=== PATIENT | female | born 2005 | race Caucasian/White ===

== ENCOUNTER 2024-05-18 11:08 | Inpatient (IN) | payer OTHER ==
[~2024-05-18] VITALS: Ht 144.8 cm; Wt 65.9 kg
[2024-05-18 12:13] LABS: HEMATOCRIT 39.4 % (36.0-47.0); HEMOGLOBIN 13.3 g/dl (12.0-15.5); MEAN CORPUSCULAR HGB CONC 33.8 g/dl (32.0-36.5); MEAN CORPUSCULAR VOLUME 88.7 fl (80.0-96.0); PLATELET COUNT, AUTOMATED 327 10^3/uL (150-450); RED BLOOD COUNT 4.44 10^6/uL (4.00-5.40); WHITE BLOOD COUNT 9.7 10^3/uL (4.0-10.0)
[2024-05-18 12:23] LABS: AMPHETAMINES LEVEL URINE NEGATIVE (NEGATIVE); BARBITURATES URINE NEGATIVE (NEGATIVE); BENZODIAZEPINES URINE NEGATIVE (NEGATIVE); COCAINE METABOLITE URINE NEGATIVE (NEGATIVE)
[2024-05-18 12:24] LABS: CANNABINOIDS URINE NEGATIVE (NEGATIVE); METHADONE URINE NEGATIVE (NEGATIVE); OPIATES URINE NEGATIVE (NEGATIVE); PHENCYCLIDINE URINE NEGATIVE (NEGATIVE)
[2024-05-18 12:25] LABS: ETHYL ALCOHOL (ETHANOL) < 0.003 % (0.000-0.010)
[2024-05-18 12:27] LABS: ALBUMIN 4.2 G/DL (3.2-5.2); ALKALINE PHOSPHATASE 64 U/L (35-104); ALT/SGPT 48 U/L (7.0-40); AST/SGOT 27 U/L (<34); BILIRUBIN,DIRECT 0.2 MG/DL (<0.4); BILIRUBIN,TOTAL 0.7 MG/DL (0.3-1.2); BLOOD UREA NITROGEN 11 MG/DL (9-23); CALCIUM LEVEL 9.4 MG/DL (8.5-10.1); CARBON DIOXIDE LEVEL 28 MMOL/L (20-31); CHLORIDE LEVEL 107 MMOL/L (98-107); CREATININE FOR GFR 0.54 MG/DL (0.55-1.30); GLUCOSE, FASTING 89 MG/DL (60-100); POTASSIUM SERUM 4.4 MMOL/L (3.5-5.1); SALICYLATE LEVEL < 3.0 MG/DL (<30); SODIUM LEVEL 142 MMOL/L (136-145); TOTAL PROTEIN 7.4 G/DL (5.7-8.2)
[2024-05-18 12:29] LABS: THYROID STIMULATING HORMONE 1.055 uIU/ML (0.48-4.17)
[2024-05-18 12:42] LABS: HCG, SERUM QUALITATIVE NEGATIVE (NEGATIVE)
[2024-05-18] MEDS ORDERED: MELO7.5T35 PO (14:43)
[2024-05-18] MEDS ORDERED: HOME MED LIST COMPLETE! XX SCH (14:45)
[2024-05-18] MEDS ORDERED: IBUPROFEN 400MG TAB PO PRN (18:25)
[2024-05-18] MEDS ORDERED: ACETAMINOPHEN 325 MG TAB PO PRN (18:25)
[2024-05-18] MEDS ORDERED: MOM 30ML SUSPENSION UDC PO PRN (18:25)
[2024-05-18] MEDS ORDERED: MAALOX 30 ML SUSP *UDC PO PRN (18:25)
[2024-05-18 19:30] VITALS: BP 137/91; TEMP 97.9; O2SAT 100
[2024-05-18] MEDS: traZODone 50 MG TAB PO PRN (22:42)
[2024-05-18] MEDS: diphenhydrAMINE 25MG CAP PO PRN (22:42)
[2024-05-19 06:33] VITALS: BP 139/89; TEMP 97; O2SAT 100
[2024-05-19] MEDS: busPIRone 5 MG TAB PO SCH (10:32)
[2024-05-19] MEDS: LORazepam 0.5 MG TAB PO STA (10:33)
[2024-05-19 15:04] VITALS: BP 127/79; TEMP 98; O2SAT 99
[2024-05-19] MEDS: hydrOXYzine 50 MG TAB PO PRN (15:48)
[2024-05-19] MEDS: OLANZapine 5 MG TAB PO PRN (15:48)
[2024-05-19] MEDS: LURASIDONE 20 MG TAB (LATUDA) PO SCH (18:10)
[2024-05-20 06:27] VITALS: BP 135/83; TEMP 97.3; O2SAT 100
[2024-05-20] MEDS ORDERED: HYDR50TA70 PO (08:22)
[2024-05-20] MEDS ORDERED: BUSP5TA PO (08:22)
[2024-05-20] MEDS ORDERED: LATU20TA PO (08:22)
[2024-05-20] MEDS ORDERED: TRAZ-252 PO (08:22)
[2024-05-20 14:52] VITALS: BP 121/66; TEMP 98.4; O2SAT 100
[2024-05-21 06:38] VITALS: BP 128/76; TEMP 97.2; O2SAT 8
== END 2024-05-21 09:38 | disposition home or self-care (01) | DRG 885 ==
LOC: EDBD 11:08 → M ED 11:08 → M ED INP 14:20 → M PSY 16:14
PROVIDERS: ADMIT Psychiatry & Neurology Psychiatry; ATTEND Psychiatry & Neurology Psychiatry
DX: F31.9 Bipolar disorder, unspecified (principal); R45.851 Suicidal ideations; F41.9 Anxiety disorder, unspecified; F17.290 Nicotine dependence, other tobacco product, uncomplicated; I10 Essential (primary) hypertension; F10.10 Alcohol abuse, uncomplicated; F50.82 Avoidant/restrictive food intake disorder; Z91.51 Personal history of suicidal behavior; Z79.899 Other long term (current) drug therapy

== ENCOUNTER 2024-12-13 17:29 | Emergency (ER) | payer OTHER ==
[~2024-12-13] VITALS: Ht 144.8 cm; Wt 66.3 kg
[~2024-12-13 17:29] MED LIST: BUSP5TA PO; HYDR50TA70 PO; LATU20TA PO; MELO7.5T35 PO; TRAZ-252 PO
[2024-12-13 17:35] VITALS: BP 126/77; TEMP 97; O2SAT 100
[2024-12-13 19:00] LABS: KETONE, URINE AUTO RFX TRACE mg/dL (NEGATIVE); MUCUS, URINE RFX MODERATE (NEGATIVE); NITRITE, URINE AUTO RFX NEGATIVE (NEGATIVE); RBC, URINE AUTO RFX 53 /HPF (0-3); SQUAM EPITHELIAL CELL UR AURFX 2 /HPF (0-6); WBC, URINE AUTO RFX 10 /HPF (0-3)
[2024-12-13 19:01] LABS: LEUKOCYTE ESTERASE UR AUTO RFX TRACE (NEGATIVE)
[2024-12-13 19:32] LABS: Trichomonas vaginalis (AMP) NOT DETECTED (NEGATIVE)
[2024-12-13 19:55] LABS: GC DNA AMPLIFICATION NEGATIVE (NEGATIVE)
[2024-12-13 20:55] LABS: BASO # 0.1 10^3/uL (0.0-0.2); BASO % 0.7 % (0.0-1.0); EOS # 0.5 10^3/uL (0.0-0.5); EOS % 5.3 % (0.0-3.0); LYMPH # 3.3 10^3/uL (1.5-5.0); LYMPH % 37.0 % (24.0-44.0); MONO # 0.6 10^3/uL (0.0-0.8); MONO % 6.6 % (2.0-8.0); NEUTROPHILS # 4.5 10^3/uL (1.5-8.5); NEUTROPHILS % 50.2 % (36.0-66.0); PLATELET COUNT, AUTOMATED 290 10^3/uL (150-450)
[2024-12-13 21:17] LABS: HCG, SERUM QUANTITATIVE < 2.6 MIU/ML (<4.2)
[2024-12-13 21:19] LABS: CALCIUM LEVEL 9.3 MG/DL (8.5-10.1); CARBON DIOXIDE LEVEL 25 MMOL/L (20-31); CHLORIDE LEVEL 107 MMOL/L (98-107); CREATININE FOR GFR 0.75 MG/DL (0.55-1.30); GLOMERULAR FILTRATION RATE > 90.0 (>60); POTASSIUM SERUM 4.4 MMOL/L (3.5-5.1); SODIUM LEVEL 142 MMOL/L (136-145)
[2024-12-13 21:46] LABS: HIV 1&2 SCREEN NEGATIVE (NEGATIVE)
== END 2024-12-13 21:45 | disposition left against medical advice (07) ==
LOC: M ED 17:29
DX: Z53.21 Procedure and treatment not carried out due to patient leaving prior to being seen by health care provider (principal)

== ENCOUNTER 2024-12-15 09:24 | Emergency (ER) | payer OTHER ==
[~2024-12-15] VITALS: Ht 144.8 cm; Wt 54.3 kg
[2024-12-15 10:21] LABS: APPEARANCE, URINE HAZY (CLEAR); BACTERIA, URINE AUTO NEGATIVE (NEGATIVE); BILIRUBIN, URINE AUTO NEGATIVE (NEGATIVE); BLOOD, URINE BLOOD NEGATIVE (NEGATIVE); GLUCOSE, URINE (UA) AUTO NEGATIVE (NEGATIVE); KETONE, URINE AUTO TRACE mg/dL (NEGATIVE); LEUKOCYTE ESTERASE, URINE AUTO NEGATIVE (NEGATIVE); MUCUS, URINE LARGE (NEGATIVE); NITRITE, URINE AUTO NEGATIVE (NEGATIVE); PROTEIN, URINE AUTO 1+ mg/dL (NEGATIVE); RBC, URINE AUTO 0 /HPF (0-3); SPECIFIC GRAVITY URINE AUTO 1.029 (1.002-1.035); SQUAMOUS EPITHELIAL CELL UR AU 1 /HPF (0-6); UROBILINOGEN, URINE AUTO 2.0 mg/dL (0.0-2.0); WBC, URINE AUTO 7 /HPF (0-3)
[2024-12-15 10:24] LABS: BASO # 0.1 10^3/uL (0.0-0.2); BASO % 1.0 % (0.0-1.0); EOS # 0.4 10^3/uL (0.0-0.5); EOS % 7.1 % (0.0-3.0); LYMPH # 2.1 10^3/uL (1.5-5.0); LYMPH % 34.3 % (24.0-44.0); MONO # 0.5 10^3/uL (0.0-0.8); MONO % 7.4 % (2.0-8.0); NEUTROPHILS # 3.0 10^3/uL (1.5-8.5); NEUTROPHILS % 50.0 % (36.0-66.0); PLATELET COUNT, AUTOMATED 291 10^3/uL (150-450)
[2024-12-15 10:50] LABS: CALCIUM LEVEL 9.3 MG/DL (8.5-10.1); CARBON DIOXIDE LEVEL 28 MMOL/L (20-31); CHLORIDE LEVEL 106 MMOL/L (98-107); CREATININE FOR GFR 0.73 MG/DL (0.55-1.30); GLOMERULAR FILTRATION RATE > 90.0 (>60); POTASSIUM SERUM 4.0 MMOL/L (3.5-5.1); SODIUM LEVEL 143 MMOL/L (136-145)
[2024-12-15 10:59] LABS: HCG, SERUM QUALITATIVE NEGATIVE (NEGATIVE)
[2024-12-15 11:30] VITALS: BP 118/65; TEMP 98.1; O2SAT 99
== END 2024-12-15 11:32 | disposition home or self-care (01) ==
LOC: M ED 09:24
DX: N93.9 Abnormal uterine and vaginal bleeding, unspecified (principal); F32.A Depression, unspecified; F41.9 Anxiety disorder, unspecified; Z79.899 Other long term (current) drug therapy